=== PATIENT | female | born 1960 | race Caucasian/White ===

== ENCOUNTER 2024-02-10 19:45 | Emergency (ER) | payer OTHER ==
[~2024-02-10] VITALS: Ht 160 cm; Wt 75.0 kg
[2024-02-10 19:52] VITALS: TEMP 97.6
[2024-02-10 22:00] VITALS: BP 140/87; PULSE 93
== END 2024-02-10 22:00 | disposition home or self-care (01) ==
LOC: COL.ER 19:45
DX: T18.128A Food in esophagus causing other injury, initial encounter (principal)